=== PATIENT | male | born 1935 | race Caucasian/White ===

== ENCOUNTER → 2016-08-08 | Outpatient (CLI) | payer BC, MEDICARE ==
[~2016-08-08] MED LIST: B COMPLETE1 EACH PO; FLORINEF 00.1 MG/TAB PO; LANSOPRAZOLE30 M2 PO; NORCO 325 MG-51 TAB PO; OCUVITE TABLET1 TAB PO; PREVACID 30MG30 M1 PO; SYNTHROID0.025 MG PO; VITAMIN E200 UNI2; ZOMIG PO
== END ==
LOC: LAB 08:32
DX: I95.1 Orthostatic hypotension (principal); Z12.5 Encounter for screening for malignant neoplasm of prostate; E78.2 Mixed hyperlipidemia; E03.4 Atrophy of thyroid (acquired); R20.2 Paresthesia of skin

== ENCOUNTER → 2016-08-17 | Outpatient (CLI) | payer MEDICARE | LOC: LAB 10:02 | DX: R79.0 Abnormal level of blood mineral (principal) ==

== ENCOUNTER → 2016-08-18 | Outpatient (CLI) | payer MEDICARE | LOC: CARDREHAB 08:34 | DX: R55 Syncope and collapse (principal); R06.00 Dyspnea, unspecified | CPT/HCPCS: A9500 ==

== ENCOUNTER → 2016-08-21 | Outpatient (CLI) | payer MEDICARE | LOC: RAD 15:17 | DX: R55 Syncope and collapse (principal) ==

== ENCOUNTER 2016-10-19 11:34 | Emergency (ER) | payer MEDICARE ==
[~2016-10-19 11:34] MED LIST changes: -B COMPLETE1 EACH PO; -FLORINEF 00.1 MG/TAB PO; -LANSOPRAZOLE30 M2 PO; -OCUVITE TABLET1 TAB PO; -VITAMIN E200 UNI2; -ZOMIG PO
[2016-10-19] MEDS ORDERED: FLORINEF 00.1 MG/TAB PO (12:46)
[2016-10-19] MEDS ORDERED: LANSOPRAZOLE30 M2 PO (12:47)
[2016-10-19] MEDS ORDERED: ZOMIG PO (12:47)
[2016-10-19] MEDS ORDERED: OCUVITE TABLET1 TAB PO (12:49)
[2016-10-19] MEDS ORDERED: B COMPLETE1 EACH PO (12:50)
[2016-10-19] MEDS ORDERED: VITAMIN E200 UNI2 (12:50)
[2016-10-19 17:22] VITALS: BP 181/94
== END 2016-10-19 17:49 | disposition short-term general hospital (02) ==
LOC: ED 11:34
DX: K80.51 Calculus of bile duct without cholangitis or cholecystitis with obstruction (principal); Z85.46 Personal history of malignant neoplasm of prostate
CPT/HCPCS: J1885; J2405; J7030; J7120; Q9967

== ENCOUNTER → 2017-09-21 | Outpatient (CLI) | payer MEDICARE ==
[~2017-09-21] MED LIST changes: +B COMPLETE1 EACH PO; +FLORINEF 00.1 MG/TAB PO; +LANSOPRAZOLE30 M2 PO; +OCUVITE TABLET1 TAB PO; +VITAMIN E200 UNI2; +ZOMIG PO
[2017-09-21 11:09] LABS: EOS # 0.4 (0.04-0.40); EOS % 4.1 % (0.0-4.0); HEMATOCRIT 44.2 % (42.0-52.0); HEMOGLOBIN 15.2 g/dL (13.5-18.0); LYMPH# 2.5 (1.50-4.00); MEAN CELL VOLUME 88 fl (78-100); MEAN CORPUSCULAR HEMOGLOBIN 30 pg (27-31); MEAN CORPUSCULAR HGB CONC 34 g/dL (33-37); MEAN PLATELET VOLUME 10.2 fl (7.4-10.4); MONO # 0.7 (0.20-0.80); PLATELET COUNT 249 K/mm3 (130-400); RED BLOOD COUNT 5.01 M/mm3 (4.20-5.60); RED CELL DISTRIBUTION WIDTH 13.7 % (11.5-14.5); WHITE BLOOD COUNT 8.6 K/mm3 (4.8-10.8)
[2017-09-21 11:44] LABS: ALBUMIN 4.1 g/dL (3.5-5.0); BUN/CREATININE RATIO 19.8 (6.0-26.0); CALCIUM 9.4 mg/dL (8.4-10.2); POTASSIUM 4.3 mmol/L (3.6-5.0); TOTAL BILIRUBIN 0.5 mg/dL (0.2-1.3); TOTAL PROTEIN 7.4 g/dL (6.3-8.2)
[2017-09-21 12:43] LABS: ERYTHROCYTE SEDIMENTATION RATE 1 mm/hr (0-20)
== END ==
LOC: LAB 09:58
PROVIDERS: Internal Medicine
DX: I95.1 Orthostatic hypotension (principal); C61 Malignant neoplasm of prostate; E78.5 Hyperlipidemia, unspecified; E03.4 Atrophy of thyroid (acquired); Z88.8 Allergy status to other drugs, medicaments and biological substances

== ENCOUNTER 2018-03-08 18:15 | Inpatient (IN) | payer MEDICARE ==
[~2018-03-08] VITALS: Ht 172.7 cm; Wt 76.4 kg
[2018-03-08 18:29] VITALS: BP 159/89
[2018-03-08 18:51] VITALS: BP 159/89
[2018-03-09 06:15] VITALS: BP 132/60
[2018-03-09 07:23] LABS: EOS # 0.4 (0.04-0.40); EOS % 3.7 % (0.0-4.0); HEMATOCRIT 36.6 % (42.0-52.0); HEMOGLOBIN 12.7 g/dL (13.5-18.0); LYMPH# 1.8 (1.50-4.00); MEAN CELL VOLUME 90 fl (78-100); MEAN CORPUSCULAR HEMOGLOBIN 31 pg (27-31); MEAN CORPUSCULAR HGB CONC 35 g/dL (33-37); MONO # 1.1 (0.20-0.80); NEU # 6.7 (1.40-6.50); PLATELET COUNT 177 K/mm3 (130-400); RED BLOOD COUNT 4.05 M/mm3 (4.20-5.60); WHITE BLOOD COUNT 10.1 K/mm3 (4.8-10.8)
[2018-03-09 18:36] VITALS: BP 175/98
[2018-03-09 21:00] VITALS: BP 146/102
[2018-03-10 06:31] VITALS: BP 162/88
[2018-03-10 11:04] LABS: CALCIUM 8.5 mg/dL (8.4-10.2); POTASSIUM 3.7 mmol/L (3.6-5.0)
[2018-03-10 11:37] VITALS: BP 165/77
[2018-03-10 18:24] VITALS: BP 139/78
[2018-03-11 06:07] VITALS: BP 193/102
[2018-03-11 06:09] VITALS: BP 131/81; BP 153/90
[2018-03-11 15:19] VITALS: BP 103/64; BP 116/72
[2018-03-11 15:20] VITALS: BP 87/54
[2018-03-11 18:09] VITALS: BP 130/76
[2018-03-12 05:41] VITALS: BP 179/96
[2018-03-12 17:45] VITALS: BP 144/74
[2018-03-13 05:47] VITALS: BP 181/95
[2018-03-13 10:08] VITALS: BP 105/68
[2018-03-13 10:09] VITALS: BP 89/57
[2018-03-13 11:42] VITALS: BP 121/70; BP 97/62
[2018-03-13 18:15] VITALS: BP 115/69
[2018-03-14 06:17] VITALS: BP 135/80
[2018-03-14 06:18] VITALS: BP 135/80
[2018-03-14 09:00] VITALS: BP 108/68
[2018-03-14 18:00] VITALS: BP 132/71
[2018-03-14 18:20] VITALS: BP 132/71
[2018-03-15 06:08] VITALS: BP 172/93
[2018-03-15 09:30] VITALS: BP 121/76
[2018-03-15 17:58] VITALS: BP 131/73
[2018-03-16 06:24] VITALS: BP 151/82
[2018-03-16 06:30] VITALS: BP 179/100
[2018-03-16 15:08] VITALS: BP 118/69
[2018-03-16 18:22] VITALS: BP 115/68
[2018-03-17 06:10] VITALS: BP 184/91
[2018-03-17 06:27] VITALS: BP 173/84
[2018-03-17 18:43] VITALS: BP 145/79
[2018-03-18 05:55] VITALS: BP 183/96
[2018-03-18 06:32] VITALS: BP 173/92
[2018-03-18 18:07] VITALS: BP 151/82
[2018-03-18 19:00] VITALS: BP 122/65
[2018-03-19 06:25] VITALS: BP 186/99
[2018-03-19 06:27] VITALS: BP 193/100
[2018-03-19 18:02] VITALS: BP 118/67
[2018-03-20 06:27] VITALS: BP 160/89
[2018-03-20 11:11] VITALS: BP 153/85
[2018-03-20] MEDS ORDERED: NORCO 325 MG-51 TA1 PO (15:09)
[2018-03-20] MEDS ORDERED: AMLODIPINE BESYL5 MG PO (15:09)
[2018-03-20] MEDS ORDERED: ESCITALOPRAM10 MG PO (15:10)
[2018-03-20] MEDS ORDERED: SEROQUEL 2525 MG/TAB PO (15:10)
[2018-03-20] MEDS ORDERED: FLORINEF 00.1 MG/TAB PO (15:11)
[2018-03-20] MEDS ORDERED: SENNA LAX8.6 M1 PO (15:11)
[2018-03-20] MEDS ORDERED: LEVOTHYROXINE0.05 MG PO (15:12)
[2018-03-20] MEDS ORDERED: THIAMINE HCL100 M1 PO (15:13)
[2018-03-20 18:31] VITALS: BP 126/76
[2018-03-21 06:05] VITALS: BP 149/91
[2018-03-21 07:30] VITALS: BP 127/77
[2018-03-21 18:20] VITALS: BP 112/73
[2018-03-22 06:24] VITALS: BP 162/94
== END 2018-03-22 08:30 | disposition home health service (06) | DRG 948 ==
LOC: MED/SURG 18:15
PROVIDERS: Family Medicine; ADMIT Internal Medicine
DX: R53.81 Other malaise (principal); C15.8 Malignant neoplasm of overlapping sites of esophagus; C79.31 Secondary malignant neoplasm of brain; I10 Essential (primary) hypertension; G89.29 Other chronic pain; K21.0 Gastro-esophageal reflux disease with esophagitis; Z85.46 Personal history of malignant neoplasm of prostate; Z87.891 Personal history of nicotine dependence; R13.10 Dysphagia, unspecified; I95.1 Orthostatic hypotension

== ENCOUNTER 2018-04-29 20:58 | Emergency (ER) | payer MEDICARE ==
[~2018-04-29 20:58] MED LIST changes: +AMLODIPINE BESYL5 MG PO; +ESCITALOPRAM10 MG PO; +LEVOTHYROXINE0.05 MG PO; +NORCO 325 MG-51 TA1 PO; +SENNA LAX8.6 M1 PO; +SEROQUEL 2525 MG/TAB PO; +THIAMINE HCL100 M1 PO; -VITAMIN E200 UNI2; +VITAMIN E200 UNI2 PO
[2018-04-29 21:47] LABS: HEMATOCRIT 37.6 % (42.0-52.0); HEMOGLOBIN 13.1 g/dL (13.5-18.0); MEAN CELL VOLUME 88 fl (78-100); MEAN CORPUSCULAR HEMOGLOBIN 31 pg (27-31); MEAN CORPUSCULAR HGB CONC 35 g/dL (33-37); MEAN PLATELET VOLUME 9.8 fl (7.4-10.4); PLATELET COUNT 221 K/mm3 (130-400); RED BLOOD COUNT 4.26 M/mm3 (4.20-5.60); RED CELL DISTRIBUTION WIDTH 15.2 % (11.5-14.5); WHITE BLOOD COUNT 9.6 K/mm3 (4.8-10.8)
[2018-04-29 22:01] LABS: ALBUMIN 3.4 g/dL (3.5-5.0); CALCIUM 8.9 mg/dL (8.4-10.2); POTASSIUM 3.1 mmol/L (3.6-5.0); TOTAL BILIRUBIN 0.8 mg/dL (0.2-1.3); TOTAL PROTEIN 6.3 g/dL (6.3-8.2)
[2018-04-29] MEDS ORDERED: LEVOTHYROXIN0.025 MG PO (22:28)
[2018-04-29] MEDS ORDERED: VITAMIN B125000 MC1 PO (22:30)
[2018-04-29 22:31] LABS: LYMPHOCYTE 7 % (20-51); MONOCYTE 5 % (3-10); NEUTROPHILS 87 % (42-75); NUCLEATED RED BLOOD CELL 1 (0-6)
[2018-04-29 22:34] LABS: PH-URINE 5.5 (5.0 - 8.0); URINE APPEARANCE HAZY; URINE BILIRUBIN NEGATIVE (NEGATIVE); URINE BLOOD NEGATIVE (NEGATIVE); URINE COLOR AMBER; URINE GLUCOSE NEGATIVE (NEGATIVE); URINE KETONE NEGATIVE (NEGATIVE); URINE LEUKOCYTE ESTERASE NEGATIVE (NEGATIVE); URINE NITRATE NEGATIVE (NEGATIVE); URINE PROTEIN(semi-quant) 1+ mg/dL (NEGATIVE); URINE UROBILINOGEN 8 mg/dL (NORMAL)
[2018-04-29 22:43] LABS: URINE MUCUS PRESENT (NOT PRESENT)
[2018-04-30 00:16] VITALS: BP 160/82
== END 2018-04-30 00:16 | disposition home or self-care (01) ==
LOC: ED 20:58
PROVIDERS: Nurse Practitioner
DX: I95.1 Orthostatic hypotension (principal); Z85.01 Personal history of malignant neoplasm of esophagus; Z92.3 Personal history of irradiation; Z87.891 Personal history of nicotine dependence
CPT/HCPCS: J2405; J7030